=== PATIENT | male | born 1995 | race Two or more races ===

== ENCOUNTER 2022-06-23 23:32 | Emergency (ER) | payer BC, OTHER ==
[2022-06-23 23:54] VITALS: BP 122/64; PULSE 76; RESP 18; TEMP 97.9; BMI 23.0
[2022-06-24] MEDS ORDERED: ACETAMINOPHEN 500 MG TABLET (FP) PO ONE (00:10)
[2022-06-24] MEDS ORDERED: ACETAMINOPHEN 325 MG TABLET (FP) ONE (00:48)
== END 2022-06-24 03:35 | disposition home or self-care (01) ==
LOC: JER 23:32
DX: S52.125A Nondisplaced fracture of head of left radius, initial encounter for closed fracture (principal); M25.522 Pain in left elbow; R22.42 Localized swelling, mass and lump, left lower limb; V00.141A Fall from scooter (nonmotorized), initial encounter; Y93.55 Activity, bike riding
CPT/HCPCS: 73070-TC-LT-FY; 99283-25